=== PATIENT | female | born 1980 | race Two or more races ===

== ENCOUNTER 2019-04-17 16:03 | Emergency (ER) | payer SELFPAY ==
[~2019-04-17] VITALS: Ht 162.6 cm; Wt 56.0 kg
[2019-04-17] MEDS ORDERED: FLUORESCEIN SODIUM 1MG/STRIP RIGHTEYE ONE (16:45)
[2019-04-17] MEDS ORDERED: TETRACAINE 0.5% OPHTH DROPS 4ML RIGHTEYE ONE (16:45)
[2019-04-17 17:52] VITALS: BP 119/59
== END 2019-04-17 17:49 | disposition home or self-care (01) ==
LOC: ER 16:03
DX: H10.021 Other mucopurulent conjunctivitis, right eye (principal); F15.10 Other stimulant abuse, uncomplicated; F17.210 Nicotine dependence, cigarettes, uncomplicated
CPT/HCPCS: 99283

== ENCOUNTER 2019-09-09 13:58 | Emergency (ER) | payer SELFPAY ==
[~2019-09-09] VITALS: Ht 167.6 cm; Wt 54.0 kg
[2019-09-09 14:08] VITALS: BP 108/52
== END 2019-09-09 18:30 | disposition left against medical advice (07) ==
LOC: ER 14:04
DX: Z53.21 Procedure and treatment not carried out due to patient leaving prior to being seen by health care provider (principal)